=== PATIENT | male | born 1965 | race Caucasian/White ===

== ENCOUNTER 2021-04-16 09:07 | Emergency (ER) | payer OTHER, BC ==
[~2021-04-16] VITALS: Ht 180.3 cm; Wt 86.2 kg
[2021-04-16 09:21] VITALS: BP_SYST 183
[2021-04-16] MEDS ORDERED: KETOROLAC TROMETHAMINE 30 MG VIAL IM ONE (09:30)
[2021-04-16] MEDS ORDERED: TRAM50TA PO (10:03)
[2021-04-16] MEDS ORDERED: METH-634 PO (10:04)
[2021-04-16 10:11] VITALS: BP_SYST 150
== END 2021-04-16 10:11 | disposition home or self-care (01) ==
LOC: SED 09:07
DX: S39.012A Strain of muscle, fascia and tendon of lower back, initial encounter (principal); I10 Essential (primary) hypertension; E11.9 Type 2 diabetes mellitus without complications; J44.9 Chronic obstructive pulmonary disease, unspecified; F17.200 Nicotine dependence, unspecified, uncomplicated; Z88.6 Allergy status to analgesic agent; V49.09XA Driver injured in collision with other motor vehicles in nontraffic accident, initial encounter; Y93.89 Activity, other specified; Y92.488 Other paved roadways as the place of occurrence of the external cause; Y99.8 Other external cause status
CPT/HCPCS: 72040; 72100; 96372; 99284; J1885

== ENCOUNTER 2022-08-02 10:30 | Outpatient (CLI) | payer BC ==
[~2022-08-02 10:30] MED LIST: METH-634 PO; TRAM50TA PO
== END 2022-08-02 20:14 | disposition home or self-care (01) ==
LOC: SCT 10:30 → SUS 20:14
DX: K80.20 Calculus of gallbladder without cholecystitis without obstruction (principal)
CPT/HCPCS: 76700-TC

== ENCOUNTER 2022-09-25 11:43 | Emergency (ER) | payer BC ==
[~2022-09-25] VITALS: Ht 177.8 cm; Wt 81.6 kg
[2022-09-25 11:57] VITALS: BP_SYST 160; PULSE 53; RESP 16; TEMP 97.9; O2SAT 94
[2022-09-25 12:22] LABS: BASOPHILS # (AUTO) 0.1 K/uL (0.0-0.2); EOSINOPHILS # (AUTO) 0.7 K/uL (0.0-0.4); EOSINOPHILS % (AUTO) 7.7 % (0.0-4.0); HEMOGLOBIN 15.2 g/dL (14.0-18.0); LYMPHOCYTES # (AUTO) 1.3 K/uL (1.0-5.5); LYMPHOCYTES % (AUTO) 15.4 % (20.5-51.5); MEAN CORPUSCULAR HEMOGLOBIN 31 pg (27-31); MEAN CORPUSCULAR HGB CONC 34 % (32-36); MEAN CORPUSCULAR VOLUME 92 fL (79.0-98.0); MONOCYTES # (AUTO) 0.6 K/uL (0.0-1.0); MONOCYTES % (AUTO) 7.3 % (1.7-9.3); NEUTROPHILS % (AUTO) 68.6 % (40.0-70.0); PLATELET COUNT (AUTO) 273 K/uL (130-430); RED BLOOD CELL COUNT(AUTO) 4.88 MIL/uL (4.2-6.2); RED CELL DISTRIBUTION WIDTH 12.9 % (9.0-15.0); WHITE BLOOD COUNT (AUTO) 8.7 K/uL (4.8-10.8)
[2022-09-25 12:23] LABS: ANION GAP 7 (5-15); CALCIUM 8.8 mg/dL (8.4-11.0); CARBON DIOXIDE 25 mmol/L (23-29); CHLORIDE 103 mmol/L (98-107); CREATININE 1.64 mg/dL (0.55-1.30); GFR AFRICAN AMERICAN 56 mL/min (>90); GLUCOSE 97 mg/dL (74-106); POTASSIUM 3.6 mmol/L (3.5-5.1); SODIUM SERUM 135 mmol/L (136-145); UREA NITROGEN, BLOOD 22 mg/dL (8-21)
[2022-09-25 12:27] LABS: GFR NON AFRICAN-AMERICAN 46 mL/min (>90)
[2022-09-25 12:45] LABS: ALANINE AMINOTRANSFERASE 14 U/L (12-78); ALBUMIN 3.3 g/dL (3.4-4.8); ASPARTATE AMINOTRANSFERASE 14 U/L (10-37); TOTAL BILIRUBIN 0.5 mg/dL (0.0-1.0); TOTAL PROTEIN, SERUM 7.7 g/dL (6.4-8.3)
[2022-09-25] MEDS ORDERED: ASPIRIN 81 MG TAB.CHEW PO ONE ×2 (13:00→13:15)
[2022-09-25] MEDS ORDERED: MORPHINE 2 MG/ML INJ. SYRINGE IVP ONE (13:15)
[2022-09-25] MEDS ORDERED: HYDROcodone/ACETAMIN 10-325 MG TAB PO ONE (13:45)
[2022-09-25] MEDS ORDERED: MORPHINE 4 MG INJ. 4 MG/ML VIAL IVP ONE (18:15)
[2022-09-25] MEDS ORDERED: HYDROcodone/ACETAMIN 5-325 MG TAB (NORCO/ VICODIN) PO ONE (18:15)
[2022-09-25] MEDS ORDERED: NITROGLYCERIN 1 INCH (GM) OINT. TP ONE (19:15)
[2022-09-25] MEDS ORDERED: NITROGLYCERIN 1 INCH (GM) OINT. ONE (19:19)
[2022-09-25] MEDS ORDERED: NIFEdipine 30 MG TAB.ER.24 PO ONE (20:45)
[2022-09-25 21:51] VITALS: BP_SYST 145; PULSE 84; RESP 20; TEMP 98.1; O2SAT 96
== END 2022-09-25 21:51 | disposition short-term general hospital (02) ==
LOC: SED 11:43
DX: I21.4 Non-ST elevation (NSTEMI) myocardial infarction (principal); R07.2 Precordial pain; I10 Essential (primary) hypertension; F17.200 Nicotine dependence, unspecified, uncomplicated; Z88.5 Allergy status to narcotic agent; Z79.899 Other long term (current) drug therapy
CPT/HCPCS: 36415; 71045; 80053; 84484; 85025; 93005; 96374; 99285; J2270

== ENCOUNTER 2022-11-23 14:50 | Outpatient (CLI) | payer BC | END 2022-11-23 18:58 | disposition home or self-care (01) | LOC: SRD 14:50 | PROVIDERS: ATTEND Anesthesiology Pain Medicine | DX: M19.012 Primary osteoarthritis, left shoulder (principal); M19.011 Primary osteoarthritis, right shoulder; M47.816 Spondylosis without myelopathy or radiculopathy, lumbar region; M51.36 Other intervertebral disc degeneration, lumbar region; M51.34 Other intervertebral disc degeneration, thoracic region | CPT/HCPCS: 72110; 73030 ==